=== PATIENT | female | born 1960 | race Caucasian/White ===

== ENCOUNTER 2020-07-15 04:18 | Inpatient (IN) | payer BC ==
[~2020-07-15] VITALS: Ht 177.8 cm; Wt 66.7 kg
--- NOTE | 2020-07-15 04:30 | NUR ---
Patient BIB [facility] from home for c/o n/v/d. Patient A/OX4. Speech is clear, speaks in complete sentences. No acute neuro deficits. Denies any cardiovascular distress, denies cp, palpitations. Denies any respiratory distress, no cough no sob. Denies any abdominal pain, or any gu distress at this time.
[2020-07-15] MEDS ORDERED: ONDANSETRON 4 MG/2 ML VIAL ONE (04:41)
[2020-07-15] MEDS ORDERED: ONDANSETRON 4 MG/2 ML VIAL IV ONE (04:45)
[2020-07-15] MEDS ORDERED: IV LACTATED RINGERS SOLUTION 1,000 ML IV ONE (04:45)
[2020-07-15] MEDS ORDERED: MECLIZINE HCL 25 MG TABLET PO ONE (05:00)
[2020-07-15] MEDS ORDERED: LORAZEPAM 2 MG/1 ML VIAL IV ONE (05:00)
[2020-07-15] MEDS ORDERED: LORAZEPAM 2 MG/1 ML VIAL ONE (05:07)
[2020-07-15] MEDS ORDERED: MECLIZINE HCL 25 MG TABLET ONE ×2 (05:08→17:38)
[2020-07-15 05:15] LABS: BASOPHILS % (AUTO) 0.3 % (0.0-2.0); EOSINOPHILS % (AUTO) 0.1 % (0.0-7.0); HEMATOCRIT 38.7 % (31.2-41.9); HEMOGLOBIN 13.3 g/dL (10.9-14.3); LYMPHOCYTES # (AUTO) 1.3 K/uL (20.0-40.0); LYMPHOCYTES % (AUTO) 12.1 % (20.5-51.5); MEAN CORPUSCULAR HEMOGLOBIN 31.2 uug (24.7-32.8); MEAN CORPUSCULAR HGB CONC 34 g/dL (32.3-35.6); MEAN CORPUSCULAR VOLUME 90.6 fL (75.5-95.3); MONOCYTES # (AUTO) 0.7 K/uL (2.0-10.0); MONOCYTES % (AUTO) 6.7 % (0.0-11.0); NEUTROPHILS # (AUTO) 8.5 K/uL (1.8-8.9); NEUTROPHILS % (AUTO) 80.8 % (38.5-71.5); PLATELET COUNT (AUTO) 183 K/uL (179-408); RED BLOOD CELL COUNT(AUTO) 4.27 MIL/uL (3.63-4.92); WHITE BLOOD COUNT (AUTO) 10.5 K/uL (3.8-11.8)
[2020-07-15 05:22] LABS: CREATININE 0.9 mg/dL (0.6-1.3); POTASSIUM 3.1 mmol/L (3.5-5.1)
[2020-07-15 05:33] LABS: BILIRUBIN,DIRECT 0.1 mg/dL (0.0-0.2); BILIRUBIN,TOTAL 0.2 mg/dL (0.2-1.0); TOTAL PROTEIN, SERUM 7.2 g/dL (6.4-8.2)
--- NOTE | 2020-07-15 05:35 | NUR ---
Patient was positioned supine on bed to trial if she would be able to tolerate laying flat for CT. Patient was able tolerate laying flat well without any distress or any nausea.
--- NOTE | 2020-07-15 06:06 | NUR ---
Patient transported to CT in stable condition.
--- NOTE | 2020-07-15 06:21 | NUR ---
Patient back in room from CT and placed back on the monitor.
--- NOTE | 2020-07-15 07:18 | NUR ---
Handoff report given to ADWOA Wright for continuity of care.
--- NOTE | 2020-07-15 07:57 | NUR ---
Per Dr. Jose pt is for tele admission, spoke with tele floor and nursing motor vehicle assembly supervisor, there are no beds available and pt will be held in ER until further notice.
--- NOTE | 2020-07-15 09:00 | NUR ---
Pt is awake, alert and oriented. Pt declined breakfast tray. Pt requested 7-up and jello and was provied with those items. NAD noted at this time, pending tele admission.
--- NOTE | 2020-07-15 13:00 | NUR ---
Pt is resting with eyes closed and no s/s of distress. Pendng admission to tele. Pt declined lunch tray.
--- NOTE | 2020-07-15 13:30 | NUR ---
Report given to Thania Lawson.
[2020-07-15] MEDS ORDERED: ACETAMINOPHEN 325 MG TABLET PO PRN (13:45)
[2020-07-15] MEDS ORDERED: POTASSIUM CHLORIDE 50 ML IV SCH (13:45)
[2020-07-15] MEDS ORDERED: Z GUARD REMEDY PASTE 57 GM TUBE TOP PRN (13:45)
[2020-07-15] MEDS ORDERED: ENOXAPARIN SODIUM 40 MG/0.4 ML DISP.SYRIN SQ SCH (13:45)
[2020-07-15] MEDS ORDERED: ONDANSETRON 4 MG/2 ML VIAL IV PRN (13:45)
[2020-07-15] MEDS ORDERED: HYDROCODONE/APAP 5-325MG TABLET PO PRN (13:45)
[2020-07-15] MEDS ORDERED: MAGNESIUM HYDROXIDE 30 ML LIQUID UDC PO PRN (13:45)
[2020-07-15] MEDS ORDERED: POTASSIUM CHLORIDE 50 ML ONE (17:18)
[2020-07-15] MEDS: MECLIZINE HCL 25 MG TABLET PO PRN (17:27)
[2020-07-15] MEDS: IV NS 1000 ML 1,000 ML IV PRN (17:46)
--- NOTE | 2020-07-15 18:59 | NUR ---
PT TRANS TO TELE FLOOR BY NURSING SERVICE AIDE, CARLEEN NOTED.
--- NOTE | 2020-07-15 19:45 | NUR ---
DID NOT RECEIVE REPORT. RECEIVED PT SLEEPING IN BED. DX: VERTIGO UNDER THE CARE OF LORETTA TOUSSAINT TO MED SURG. PT IN NO ACUTE DISTRESS. COMPLAINT MILD NAUSEA AT THE MOMENT. PT ON ROOM AIR O2 SATURATING @ 96%, NO S/S OF SOB NOTED. ADMISSION PROCESS AND PROCESS PLAN INITIATED. BELONGING LIST COMPLETED. PT ORIENTED TO UNIT. PT IS FULL CODE. IV SITE ON LEFT AC 20G INTACT AND PATENT RUNNING 60 ML/HR NS. NURSING ASSESSMENT DONE, SKIN INTACT. SAFETY AND COMFORT PROVIDED. WILL CONTINUE TO MONITOR.
[2020-07-15 20:00] VITALS: BP 122/58
[2020-07-16 04:00] VITALS: BP 126/68
[2020-07-16] MEDS: IV NS 1000 ML 1,000 ML IV PRN (04:48)
--- NOTE | 2020-07-16 05:38 | NUR ---
AXOX4. SLEPT THROUGH THE NIGHT. NO ACUTE DISTRESS NOTED. EXPRESSED " FEELING BETTER." ASSISTED PT TO THE BATHROOM, C/O OF FEELING DIZZY. FLUIDS RUNNING. SAFETY MEASURE MAINTAINED. ALL NEEDS ATTENDED TO PROMPTLY. WILL CONTINUE TO MONITOR AND ENDORSE TO ONCOMING SHIFT.
[2020-07-16 07:15] LABS: BASOPHILS % (AUTO) 0.7 % (0.0-2.0); EOSINOPHILS # (AUTO) 0.1 K/uL (0.0-0.7); EOSINOPHILS % (AUTO) 0.8 % (0.0-7.0); HEMATOCRIT 36.5 % (31.2-41.9); HEMOGLOBIN 12.5 g/dL (10.9-14.3); LYMPHOCYTES # (AUTO) 1.9 K/uL (20.0-40.0); LYMPHOCYTES % (AUTO) 29.1 % (20.5-51.5); MEAN CORPUSCULAR HEMOGLOBIN 31.3 uug (24.7-32.8); MEAN CORPUSCULAR HGB CONC 34 g/dL (32.3-35.6); MEAN CORPUSCULAR VOLUME 91.3 fL (75.5-95.3); MONOCYTES # (AUTO) 0.6 K/uL (2.0-10.0); MONOCYTES % (AUTO) 9.8 % (0.0-11.0); NEUTROPHILS # (AUTO) 3.9 K/uL (1.8-8.9); NEUTROPHILS % (AUTO) 59.6 % (38.5-71.5); PLATELET COUNT (AUTO) 160 K/uL (179-408); WHITE BLOOD COUNT (AUTO) 6.5 K/uL (3.8-11.8)
[2020-07-16 07:24] LABS: CREATININE 0.8 mg/dL (0.6-1.3); MAGNESIUM 2.2 mg/dL (1.8-2.4); PHOSPHOROUS 2.8 mg/dL (2.5-4.9); POTASSIUM 3.3 mmol/L (3.5-5.1)
[2020-07-16] MEDS ORDERED: POTASSIUM CHLORIDE 20 MEQ TAB.PRT.SR PO ONE (10:00)
[2020-07-16] MEDS: MECLIZINE HCL 25 MG TABLET PO PRN (10:04)
[2020-07-16] MEDS ORDERED: ONDA4TAB5 PO (10:04)
[2020-07-16] MEDS ORDERED: MECL-159 PO (10:04)
[2020-07-16 11:54] VITALS: BP 116/62
--- NOTE | 2020-07-16 13:57 | NUR ---
dc orders received noted and carried out dc heplock per md orders,dc instruction and education given to the pt.pt verbalized understanding all the instruction,pt left the facility via private car in stable condition
== END 2020-07-16 13:45 | disposition home or self-care (01) | DRG 149 ==
LOC: ER 04:21 → TELE3 18:35 → MEDSURG3 18:50
PROVIDERS: ADMIT Nurse Practitioner Acute Care; ATTEND Nurse Practitioner Acute Care
DX: H81.10 Benign paroxysmal vertigo, unspecified ear (principal); E87.6 Hypokalemia; R79.89 Other specified abnormal findings of blood chemistry; H55.00 Unspecified nystagmus
CPT/HCPCS: 36415; 70450; 71045; 83690; 83735; 84100; 85025; 93005; A4663; G0378; J1650; J2060; J2405; J3480; J7030; J7120; J8597